=== PATIENT | female | born 1955 | race Caucasian/White ===

== ENCOUNTER 2017-09-20 09:05 | Outpatient (CLI) | payer OTHER | END 2017-09-20 09:11 | disposition home or self-care (01) | LOC: RAD 09:05 | DX: M25.561 Pain in right knee (principal) ==

== ENCOUNTER → 2017-09-20 | Outpatient (CLI) | payer OTHER ==
[~2017-09-20] MED LIST: ELOCON45 G1 TP; GILTUSS TR TAB1 EACH PO; LIPITOR40 MG PO; SYNTHROID50 MCG; SYNTHROID50 MCG PO; SYNTROID PO; ZYRTEC10 MG PO
== END | disposition home or self-care (01) ==
LOC: PPHC 08:07
DX: M25.561 Pain in right knee (principal); Z00.8 Encounter for other general examination; Z76.0 Encounter for issue of repeat prescription; Z00.00 Encounter for general adult medical examination without abnormal findings

== ENCOUNTER → 2017-11-11 | Outpatient (CLI) | payer OTHER | END | disposition home or self-care (01) | LOC: PPHC 11:33 | DX: Z01.89 Encounter for other specified special examinations (principal) ==

== ENCOUNTER 2017-11-22 09:55 | Outpatient (CLI) | payer OTHER | END 2017-11-22 09:58 | disposition home or self-care (01) | LOC: SONOGRAMA 09:55 | DX: E04.1 Nontoxic single thyroid nodule (principal) ==

== ENCOUNTER 2018-02-25 07:10 | Outpatient (CLI) | payer OTHER | END 2018-02-25 07:16 | disposition home or self-care (01) | LOC: LAB 07:10 | DX: E03.8 Other specified hypothyroidism (principal) ==

== ENCOUNTER 2018-06-17 07:09 | Outpatient (CLI) | payer OTHER | END 2018-06-17 07:17 | disposition home or self-care (01) | LOC: LAB 07:09 | DX: E03.8 Other specified hypothyroidism (principal) ==

== ENCOUNTER 2018-07-19 11:11 | Outpatient (CLI) | payer OTHER | END 2018-07-19 11:23 | disposition home or self-care (01) | LOC: RAD 11:11 | DX: M54.2 Cervicalgia (principal); M25.511 Pain in right shoulder; M25.512 Pain in left shoulder ==

== ENCOUNTER 2018-07-27 09:17 | Outpatient (CLI) | payer OTHER | END 2018-07-27 10:16 | disposition home or self-care (01) | LOC: MAMO-SONO 09:17 | DX: N60.12 Diffuse cystic mastopathy of left breast (principal); N64.4 Mastodynia; N76.0 Acute vaginitis; Z12.31 Encounter for screening mammogram for malignant neoplasm of breast ==

== ENCOUNTER 2018-08-14 10:24 | Outpatient (CLI) | payer OTHER ==
[~2018-08-14 10:24] MED LIST changes: +IBUPROFEN800 MG PO; +TIZANIDINE HCL4 MG PO
== END 2018-08-14 10:30 | disposition home or self-care (01) ==
LOC: LAB 10:24
DX: Z12.11 Encounter for screening for malignant neoplasm of colon (principal); K57.30 Diverticulosis of large intestine without perforation or abscess without bleeding; Z00.00 Encounter for general adult medical examination without abnormal findings

== ENCOUNTER 2018-08-24 09:42 | Outpatient (CLI) | payer OTHER | END 2018-08-24 10:07 | disposition home or self-care (01) | LOC: LAB 09:42 | DX: M26.629 Arthralgia of temporomandibular joint, unspecified side (principal) ==

== ENCOUNTER 2018-09-30 07:25 | Outpatient (CLI) | payer OTHER | END 2018-09-30 13:04 | disposition home or self-care (01) | LOC: LAB 07:25 | DX: E03.8 Other specified hypothyroidism (principal) ==

== ENCOUNTER 2019-01-19 06:24 | Outpatient (CLI) | payer OTHER | END 2019-01-19 06:55 | disposition home or self-care (01) | LOC: LAB 06:24 | DX: E03.8 Other specified hypothyroidism (principal); E11.65 Type 2 diabetes mellitus with hyperglycemia; E78.00 Pure hypercholesterolemia, unspecified ==

== ENCOUNTER 2019-01-19 07:19 | Outpatient (CLI) | payer OTHER | END 2019-01-19 08:52 | disposition home or self-care (01) | LOC: SONOGRAMA 07:19 → MAMO-SONO 10:45 | DX: E04.8 Other specified nontoxic goiter (principal) ==

== ENCOUNTER → 2019-03-10 07:32 | Outpatient (CLI) | payer OTHER | END | disposition home or self-care (01) | LOC: LAB 07:32 | DX: M06.4 Inflammatory polyarthropathy (principal); D64.89 Other specified anemias; E11.9 Type 2 diabetes mellitus without complications; E03.8 Other specified hypothyroidism; I10 Essential (primary) hypertension; E55.9 Vitamin D deficiency, unspecified ==

== ENCOUNTER 2019-03-10 08:33 | Outpatient (CLI) | payer OTHER | END 2019-03-10 08:37 | disposition home or self-care (01) | LOC: RAD 08:33 | DX: M79.604 Pain in right leg (principal); M25.551 Pain in right hip; M25.561 Pain in right knee ==

== ENCOUNTER → 2019-04-21 07:25 | Outpatient (CLI) | payer OTHER | END | disposition home or self-care (01) | LOC: LAB 07:25 | DX: E03.8 Other specified hypothyroidism (principal) ==

== ENCOUNTER → 2019-08-21 06:40 | Outpatient (CLI) | payer OTHER | END | disposition home or self-care (01) | LOC: LAB 06:40 | DX: E03.8 Other specified hypothyroidism (principal) ==

== ENCOUNTER 2020-01-01 06:35 | Outpatient (CLI) | payer OTHER | END 2020-01-01 15:00 | disposition home or self-care (01) | LOC: LAB 06:35 | PROVIDERS: ATTEND Internal Medicine Endocrinology, Diabetes & Metabolism | DX: E04.8 Other specified nontoxic goiter (principal) ==

== ENCOUNTER 2020-01-01 07:16 | Outpatient (CLI) | payer OTHER | END 2020-01-01 07:18 | disposition home or self-care (01) | LOC: SONOGRAMA 07:16 → MAMO-SONO 08:15 | PROVIDERS: ATTEND Internal Medicine Endocrinology, Diabetes & Metabolism | DX: E04.8 Other specified nontoxic goiter (principal) ==

== ENCOUNTER → 2020-03-05 15:33 | Outpatient (CLI) | payer OTHER | END | disposition home or self-care (01) | LOC: CERTIFICAD 15:33 | PROVIDERS: ATTEND Family Medicine | DX: Z11.1 Encounter for screening for respiratory tuberculosis (principal) ==

== ENCOUNTER → 2020-04-01 16:36 | Outpatient (CLI) | payer OTHER | END | disposition home or self-care (01) | LOC: PPH VACUNA 16:36 | DX: Z23 Encounter for immunization (principal) ==

== ENCOUNTER 2020-05-24 07:16 | Outpatient (CLI) | payer OTHER | END 2020-05-24 07:21 | disposition home or self-care (01) | LOC: LAB 07:16 | PROVIDERS: ATTEND Internal Medicine Endocrinology, Diabetes & Metabolism | DX: E03.8 Other specified hypothyroidism (principal) ==

== ENCOUNTER 2020-07-29 09:04 | Outpatient (CLI) | payer OTHER | END 2020-07-29 09:11 | disposition home or self-care (01) | LOC: RAD 09:04 | PROVIDERS: ATTEND Internal Medicine Cardiovascular Disease | DX: N64.59 Other signs and symptoms in breast (principal); I10 Essential (primary) hypertension ==

== ENCOUNTER 2020-07-29 10:09 | Outpatient (CLI) | payer OTHER | END 2020-07-29 10:24 | disposition home or self-care (01) | LOC: NUCLEAR 10:09 | PROVIDERS: ATTEND Internal Medicine Cardiovascular Disease | DX: G45.8 Other transient cerebral ischemic attacks and related syndromes (principal); E55.9 Vitamin D deficiency, unspecified; M81.0 Age-related osteoporosis without current pathological fracture; R00.2 Palpitations ==

== ENCOUNTER → 2020-08-02 07:25 | Outpatient (CLI) | payer OTHER | END | disposition home or self-care (01) | LOC: LAB 07:25 | PROVIDERS: ATTEND Internal Medicine Cardiovascular Disease | DX: I10 Essential (primary) hypertension (principal); E11.9 Type 2 diabetes mellitus without complications; E03.8 Other specified hypothyroidism; E78.2 Mixed hyperlipidemia ==

== ENCOUNTER 2020-12-06 07:37 | Outpatient (CLI) | payer OTHER | END 2020-12-06 07:41 | disposition home or self-care (01) | LOC: LAB 07:37 | PROVIDERS: ATTEND Internal Medicine Cardiovascular Disease | DX: I11.9 Hypertensive heart disease without heart failure (principal); J10.89 Influenza due to other identified influenza virus with other manifestations; E03.8 Other specified hypothyroidism; E78.2 Mixed hyperlipidemia; Z12.11 Encounter for screening for malignant neoplasm of colon; E55.9 Vitamin D deficiency, unspecified ==

== ENCOUNTER 2021-02-25 08:26 | Outpatient (CLI) | payer OTHER | END 2021-02-25 15:00 | disposition home or self-care (01) | LOC: LAB 08:26 | PROVIDERS: ATTEND Emergency Medicine Pediatric Emergency Medicine | DX: Z03.818 Encounter for observation for suspected exposure to other biological agents ruled out (principal) ==

== ENCOUNTER 2021-04-13 08:00 | Outpatient (CLI) | payer OTHER | END 2021-04-13 08:30 | disposition home or self-care (01) | LOC: PPH VACUNA 08:00 | PROVIDERS: ATTEND Emergency Medicine Pediatric Emergency Medicine | DX: Z23 Encounter for immunization (principal) ==

== ENCOUNTER → 2021-04-25 07:11 | Outpatient (CLI) | payer OTHER | END | disposition home or self-care (01) | LOC: LAB 07:11 | PROVIDERS: ATTEND Internal Medicine Cardiovascular Disease | DX: I10 Essential (primary) hypertension (principal); E11.9 Type 2 diabetes mellitus without complications; E03.8 Other specified hypothyroidism; E78.2 Mixed hyperlipidemia ==

== ENCOUNTER 2021-08-15 07:05 | Outpatient (CLI) | payer OTHER | END 2021-08-15 07:08 | disposition home or self-care (01) | LOC: LAB 07:05 | PROVIDERS: ATTEND Internal Medicine Cardiovascular Disease | DX: I10 Essential (primary) hypertension (principal); E11.9 Type 2 diabetes mellitus without complications; E03.8 Other specified hypothyroidism; E78.2 Mixed hyperlipidemia; E55.9 Vitamin D deficiency, unspecified; E78.00 Pure hypercholesterolemia, unspecified ==

== ENCOUNTER 2021-11-02 08:00 | Outpatient (CLI) | payer OTHER | END 2021-11-02 08:30 | disposition home or self-care (01) | LOC: PPH VACUNA 08:00 | PROVIDERS: ATTEND Emergency Medicine Pediatric Emergency Medicine | DX: Z23 Encounter for immunization (principal) ==

== ENCOUNTER 2021-12-19 07:19 | Outpatient (CLI) | payer OTHER | END 2021-12-19 07:22 | disposition home or self-care (01) | LOC: LAB 07:19 | PROVIDERS: ATTEND Internal Medicine Cardiovascular Disease | DX: I10 Essential (primary) hypertension (principal); E11.9 Type 2 diabetes mellitus without complications; E03.9 Hypothyroidism, unspecified; E78.2 Mixed hyperlipidemia; E55.9 Vitamin D deficiency, unspecified ==

== ENCOUNTER 2022-02-23 06:18 | Outpatient (CLI) | payer OTHER | END 2022-02-23 06:19 | disposition home or self-care (01) | LOC: LAB 06:18 | PROVIDERS: ATTEND Internal Medicine Endocrinology, Diabetes & Metabolism | DX: E03.8 Other specified hypothyroidism (principal); E78.00 Pure hypercholesterolemia, unspecified; E11.65 Type 2 diabetes mellitus with hyperglycemia ==

== ENCOUNTER 2022-02-23 07:23 | Outpatient (CLI) | payer OTHER | END 2022-02-23 07:26 | disposition home or self-care (01) | LOC: SONOGRAMA 07:23 | PROVIDERS: ATTEND Internal Medicine Endocrinology, Diabetes & Metabolism | DX: E04.8 Other specified nontoxic goiter (principal) ==

== ENCOUNTER 2022-04-07 08:00 | Outpatient (CLI) | payer OTHER | END 2022-04-07 08:05 | disposition home or self-care (01) | LOC: PPH VACUNA 08:00 | PROVIDERS: ATTEND Emergency Medicine Pediatric Emergency Medicine | DX: Z23 Encounter for immunization (principal) ==

== ENCOUNTER 2022-05-07 10:55 | Outpatient (CLI) | payer OTHER | END 2022-05-07 11:05 | disposition home or self-care (01) | LOC: PPH VACUNA 10:55 | PROVIDERS: ATTEND Emergency Medicine Pediatric Emergency Medicine | DX: Z23 Encounter for immunization (principal) ==

== ENCOUNTER 2022-08-10 09:14 | Outpatient (CLI) | payer OTHER | END 2022-08-10 09:24 | disposition home or self-care (01) | LOC: MAMO-SONO 09:14 | PROVIDERS: ATTEND Internal Medicine Cardiovascular Disease | DX: N63.11 Unspecified lump in the right breast, upper outer quadrant (principal) ==

== ENCOUNTER 2022-08-21 07:09 | Outpatient (CLI) | payer OTHER | END 2022-08-21 07:16 | disposition home or self-care (01) | LOC: LAB 07:09 | DX: E11.65 Type 2 diabetes mellitus with hyperglycemia (principal); E78.00 Pure hypercholesterolemia, unspecified; E03.8 Other specified hypothyroidism ==

== ENCOUNTER 2022-12-07 06:40 | Outpatient (CLI) | payer OTHER | END 2022-12-07 06:41 | disposition home or self-care (01) | LOC: LAB 06:40 | PROVIDERS: ATTEND Internal Medicine Cardiovascular Disease | DX: E03.9 Hypothyroidism, unspecified (principal); E11.9 Type 2 diabetes mellitus without complications; I10 Essential (primary) hypertension; E78.2 Mixed hyperlipidemia ==

== ENCOUNTER → 2023-02-15 06:28 | Outpatient (CLI) | payer OTHER | END | disposition home or self-care (01) | LOC: LAB 06:28 | PROVIDERS: ATTEND Internal Medicine Endocrinology, Diabetes & Metabolism | DX: E03.8 Other specified hypothyroidism (principal) ==

== ENCOUNTER 2023-02-15 07:43 | Outpatient (CLI) | payer OTHER | END 2023-02-15 07:44 | disposition home or self-care (01) | LOC: SONOGRAMA 07:43 | PROVIDERS: ATTEND Internal Medicine Endocrinology, Diabetes & Metabolism | DX: E04.8 Other specified nontoxic goiter (principal) ==

== ENCOUNTER 2023-03-17 | Outpatient (CLI) | payer OTHER | END 2023-03-17 00:15 | disposition home or self-care (01) | LOC: PPH VACUNA | PROVIDERS: ATTEND Emergency Medicine Pediatric Emergency Medicine | DX: Z23 Encounter for immunization (principal) | CPT/HCPCS: 90686; G0008 ==

== ENCOUNTER 2023-03-25 21:33 | Emergency (ER) | payer OTHER ==
[~2023-03-25] VITALS: Ht 165.1 cm; Wt 95.3 kg
[2023-03-25] MEDS ORDERED: NORVASC5 MG PO (21:46)
== END 2023-03-26 03:41 | disposition home or self-care (01) ==
LOC: ER 21:33
PROVIDERS: Emergency Medicine
DX: U07.1 COVID-19 (principal); I10 Essential (primary) hypertension

== ENCOUNTER 2023-05-28 07:16 | Outpatient (CLI) | payer OTHER ==
[~2023-05-28 07:16] MED LIST changes: +NORVASC5 MG PO
[2023-05-28 08:32] LABS: URINE APPEARANCE Clear; URINE BILIRRUBIN Negative (NEGATIVE); URINE BLOOD Negative; URINE COLOR Yellow; URINE GLUCOSE Negative (NEGATIVE); URINE LEUKOCYTE Trace; URINE NITRATE Negative; URINE PROTEIN Negative (NEGATIVE)
[2023-05-28 08:36] LABS: URINE BACTERIA 2373.4 uL (0.0-1933); URINE EPITHELIAL CELLS 21.3 uL (0.0-38.8); URINE RBC 5.8 uL (0.0-20.8); URINE WBC 18.8 uL (0.0-23.2)
[2023-05-28 08:59] LABS: HEMOGLOBIN 13.2 g/dL (12.0-15.00); MEAN CELL VOLUME 86.5 fL (80.00-100.00); MEAN CORPUSCULAR HEMOGLOBIN 29.4 pg (27.00-32.0); PLATELET COUNT 237 K/uL (150-450); RED CELL DISTRIBUTION WIDTH 15.8 % (11.5-14.5)
[2023-05-28 09:29] LABS: ALBUMIN 3.5 gm/dL (3.4-5.0); BILIRUBIN TOTAL 0.39 mg/dL (0.3-1.2); CALCIUM 8.9 mg/dL (8.5-10.1); CHOL HDL RATIO 3.2 (0-5.0); CREATININE SERUM 0.71 mg/dL (0.55-1.02); GFR 82.36; GLOBULINA 3.6 G/DL (2.4-3.5); POTASSIUM 4.29 mEq/L (3.5-5.1); T4 TOTAL 7.63 UG/DL (4.8-13.9); TOTAL PROTEIN 7.1 gm/dL (6.4-8.2); TSH 1.3 uIU/mL (0.358-3.74)
== END 2023-05-28 07:23 | disposition home or self-care (01) ==
LOC: LAB 07:16
PROVIDERS: ATTEND Internal Medicine Cardiovascular Disease
DX: E03.9 Hypothyroidism, unspecified (principal); E78.2 Mixed hyperlipidemia; E11.9 Type 2 diabetes mellitus without complications; I10 Essential (primary) hypertension

== ENCOUNTER 2024-01-16 10:42 | Outpatient (CLI) | payer OTHER | END 2024-01-16 10:53 | disposition home or self-care (01) | LOC: MRI 10:42 | PROVIDERS: ATTEND Orthopaedic Surgery Sports Medicine | DX: M25.551 Pain in right hip (principal); M25.561 Pain in right knee | CPT/HCPCS: 73721 ==

== ENCOUNTER → 2024-02-20 06:42 | Outpatient (CLI) | payer OTHER ==
[2024-02-20 07:45] LABS: HEMATOCRIT 39.7 % (36.0-45.00); HEMOGLOBIN 13.1 g/dL (12.0-15.00); MEAN CELL VOLUME 86.1 fL (80.00-100.00); MEAN CORPUSCULAR HEMOGLOBIN 28.4 pg (27.00-32.0); PLATELET COUNT 244 K/uL (150-450); RED CELL DISTRIBUTION WIDTH 15.9 % (11.5-14.5)
[2024-02-20 08:11] LABS: ALBUMIN 3.7 gm/dL (3.4-5.0); BILIRUBIN TOTAL 0.59 mg/dL (0.3-1.2); CALCIUM 9.1 mg/dL (8.5-10.1); CHOL HDL RATIO 2.2 (0-5.0); CREATININE SERUM 0.63 mg/dL (0.55-1.02); GFR 94.25; GLOBULINA 3.6 G/DL (2.4-3.5); POTASSIUM 4.2 mEq/L (3.5-5.1); T4 FREE 0.95 NG/ML (0.76-1.46); TOTAL PROTEIN 7.3 gm/dL (6.4-8.2); TSH 1.27 uIU/mL (0.358-3.74)
== END | disposition home or self-care (01) ==
LOC: LAB 06:42
PROVIDERS: ATTEND Internal Medicine Endocrinology, Diabetes & Metabolism
DX: E11.65 Type 2 diabetes mellitus with hyperglycemia (principal); E78.00 Pure hypercholesterolemia, unspecified; E03.8 Other specified hypothyroidism

== ENCOUNTER 2024-02-20 07:02 | Outpatient (CLI) | payer OTHER | END 2024-02-20 07:06 | disposition home or self-care (01) | LOC: SONOGRAMA 07:02 | PROVIDERS: ATTEND Internal Medicine Endocrinology, Diabetes & Metabolism | DX: E04.8 Other specified nontoxic goiter (principal) ==

== ENCOUNTER 2024-07-02 08:09 | Day surgery (SDC) | payer OTHER ==
[2024-06-25 07:56] LABS: HEMATOCRIT 40.4 % (36.0-45.00); HEMOGLOBIN 13.7 g/dL (12.0-15.00); MEAN CELL VOLUME 86.5 fL (80.00-100.00); MEAN CORPUSCULAR HEMOGLOBIN 29.3 pg (27.00-32.0); MEAN CORPUSCULAR HGB CONC 33.9 g/dl (32.0-36.0); PLATELET COUNT 265 K/uL (150-450); RED BLOOD COUNT 4.68 M/uL (4.00-6.00); RED CELL DISTRIBUTION WIDTH 15.4 % (11.5-14.5)
[2024-06-25 08:21] VITALS: BP 124/84
[2024-06-25 08:33] LABS: INR 0.99; PARTIAL THROMBOPLASTIN TIME 27.6 SECONDS (22.0-34.0); PROTHROMBIN TIME 10.8 SECONDS (9.0-11.5)
[2024-06-25 08:35] LABS: ALBUMIN 3.6 gm/dL (3.4-5.0); BILIRUBIN TOTAL 0.58 mg/dL (0.3-1.2); CALCIUM 8.9 mg/dL (8.5-10.1); CREATININE SERUM 0.71 mg/dL (0.55-1.02); GFR 82.11; GLOBULINA 3.7 G/DL (2.4-3.5); POTASSIUM 4.16 mEq/L (3.5-5.1); TOTAL PROTEIN 7.3 gm/dL (6.4-8.2)
[2024-06-25 08:54] LABS: URINE APPEARANCE Clear; URINE BILIRRUBIN Negative (NEGATIVE); URINE BLOOD Moderate; URINE COLOR Yellow; URINE GLUCOSE Negative (NEGATIVE); URINE KETONE Negative (NEGATIVE); URINE LEUKOCYTE Negative; URINE NITRATE Negative; URINE PROTEIN Negative (NEGATIVE); URINE UROBILINOGEN 0.2 E.U./dl
[2024-06-25 08:57] LABS: URINE BACTERIA 3778.3 uL (0.0-1933); URINE EPITHELIAL CELLS 18.9 uL (0.0-38.8); URINE RBC 87.7 uL (0.0-20.8); URINE WBC 14.8 uL (0.0-23.2)
[2024-06-25 09:02] LABS: URINE CAST 0.44 uL (0.0-1.40)
[~2024-07-02] VITALS: Ht 160 cm; Wt 96.2 kg
[~2024-07-02 08:09] MED LIST changes: +ZOCOR20 MG
[2024-07-02] MEDS ORDERED: CEFAZOLIN SODIUM 1,000 MG VIAL IV ONE ×2 (12:30→13:15)
[2024-07-02] MEDS ORDERED: METHYLPREDNISOLONE ACETATE 80 MG/ML VIAL IM ONE (12:30)
[2024-07-02] MEDS ORDERED: EPINEPHRINE HCL/PF 1 MG/ML AMPUL IR ONE (12:30)
[2024-07-02] MEDS ORDERED: DUI500 PO (13:08)
[2024-07-02] MEDS ORDERED: TRAM1TAB98 PO (13:09)
[2024-07-02] MEDS ORDERED: MEPERIDINE HCL/PF 25 MG/ML VIAL IM PRN (13:15)
[2024-07-02] MEDS ORDERED: PROMETHAZINE HCL 25 MG/ML AMPUL IM PRN (13:15)
[2024-07-02] MEDS ORDERED: CEFADROXIL 500 MG CAPSULE PO SCH (21:00)
== END 2024-07-02 16:50 | disposition home or self-care (01) ==
LOC: CIR.AMB 08:09
PROVIDERS: ATTEND Orthopaedic Surgery Sports Medicine
DX: S83.271A Complex tear of lateral meniscus, current injury, right knee, initial encounter (principal); M22.41 Chondromalacia patellae, right knee; M23.51 Chronic instability of knee, right knee; M17.11 Unilateral primary osteoarthritis, right knee; M67.51 Plica syndrome, right knee; I10 Essential (primary) hypertension; E03.8 Other specified hypothyroidism; E78.00 Pure hypercholesterolemia, unspecified

== ENCOUNTER 2024-07-23 06:59 | Emergency (ER) | payer OTHER ==
[~2024-07-23] VITALS: Ht 165.1 cm; Wt 96.6 kg
[~2024-07-23 06:59] MED LIST changes: +DUI500 PO; +TRAM1TAB98 PO
[2024-07-23] MEDS ORDERED: ROSUVASTATIN CAL5 MG PO (07:10)
[2024-07-23 07:11] VITALS: BP 123/78; O2SAT 97
[2024-07-23 09:00] LABS: URINE APPEARANCE Clear; URINE BILIRRUBIN Negative (NEGATIVE); URINE BLOOD Moderate; URINE COLOR Yellow; URINE GLUCOSE Negative (NEGATIVE); URINE KETONE Negative (NEGATIVE); URINE LEUKOCYTE Trace; URINE NITRATE Negative; URINE PROTEIN Negative (NEGATIVE); URINE UROBILINOGEN 0.2 E.U./dl
[2024-07-23 09:00] LABS: HEMATOCRIT 41.2 % (36.0-45.00); HEMOGLOBIN 13.8 g/dL (12.0-15.00); MEAN CELL VOLUME 86.6 fL (80.00-100.00); MEAN CORPUSCULAR HEMOGLOBIN 29.1 pg (27.00-32.0); MEAN CORPUSCULAR HGB CONC 33.6 g/dl (32.0-36.0); PLATELET COUNT 242 K/uL (150-450); RED BLOOD COUNT 4.76 M/uL (4.00-6.00); RED CELL DISTRIBUTION WIDTH 15.8 % (11.5-14.5)
[2024-07-23 09:03] LABS: URINE BACTERIA 116.2 uL (0.0-1933); URINE EPITHELIAL CELLS 18.5 uL (0.0-38.8); URINE RBC 155.2 uL (0.0-20.8); URINE WBC 24.5 uL (0.0-23.2)
[2024-07-23 09:07] LABS: URINE CAST 1.03 uL (0.0-1.40)
[2024-07-23 09:21] LABS: CALCIUM 9.5 mg/dL (8.5-10.1); CREATININE SERUM 0.68 mg/dL (0.55-1.02); GFR 86.3; POTASSIUM 4.21 mEq/L (3.5-5.1)
== END 2024-07-23 10:24 | disposition home or self-care (01) ==
LOC: ER 07:01
PROVIDERS: General Practice
DX: N20.1 Calculus of ureter (principal); R10.32 Left lower quadrant pain

== ENCOUNTER 2024-07-27 10:53 | Outpatient (CLI) | payer OTHER ==
[~2024-07-27 10:53] MED LIST changes: +ROSUVASTATIN CAL5 MG PO
[2024-07-27 11:36] LABS: PROTHROMBIN TIME 10.9 SECONDS (9.0-11.5)
== END 2024-07-27 11:06 | disposition home or self-care (01) ==
LOC: LAB 10:53
DX: N20.1 Calculus of ureter (principal); N13.5 Crossing vessel and stricture of ureter without hydronephrosis

== ENCOUNTER 2024-07-30 08:21 | Outpatient (CLI) | payer OTHER | END 2024-07-30 08:26 | disposition home or self-care (01) | LOC: EKG 08:21 | DX: I10 Essential (primary) hypertension (principal) ==

== ENCOUNTER 2024-11-26 09:44 | Outpatient (CLI) | payer OTHER | END 2024-11-26 09:54 | disposition home or self-care (01) | LOC: RAD 09:44 | PROVIDERS: ATTEND Urology | DX: N20.1 Calculus of ureter (principal); N13.5 Crossing vessel and stricture of ureter without hydronephrosis ==

== ENCOUNTER 2025-01-27 08:46 | Emergency (ER) | payer OTHER ==
[~2025-01-27] VITALS: Ht 165.1 cm; Wt 97.1 kg
[2025-01-27] MEDS ORDERED: KETOROLAC TROMETHAMINE 30 MG VIAL IM ONE (09:15)
== END 2025-01-27 11:09 | disposition home or self-care (01) ==
LOC: ER 08:48
DX: S93.492A Sprain of other ligament of left ankle, initial encounter (principal); S90.02XA Contusion of left ankle, initial encounter; W10.8XXA Fall (on) (from) other stairs and steps, initial encounter; Y93.89 Activity, other specified; Y92.89 Other specified places as the place of occurrence of the external cause; Y99.8 Other external cause status; I10 Essential (primary) hypertension; E03.8 Other specified hypothyroidism
CPT/HCPCS: 73610; 96372; 99283; J1885

== ENCOUNTER 2025-02-18 07:34 | Outpatient (CLI) | payer OTHER ==
[2025-02-18 08:20] LABS: BASO % 0.9 % (0.1-1.2); EOS # 0.14 (0.04-0.54); EOS % 2.6 % (0.7-7.0); LYMPH # 1.98 (1.18-3.74); LYMPH % 37.4 % (19.3-53.1); MEAN PLATELET VOLUME 9.40 fl (9.4-12.4); MONO # 0.54 (0.24-0.82); MONO % 10.2 % (4.7-12.5); NEUT # 2.58 (1.56-6.13); NEUT % 48.7 % (34.0-71.1); RED CELL DISTRIBUTION WIDTH 15.6 % (11.6-14.4)
[2025-02-18 09:35] LABS: URINE APPEARANCE Clear; URINE BILIRRUBIN Negative (NEGATIVE); URINE BLOOD Trace; URINE COLOR Yellow; URINE GLUCOSE Negative (NEGATIVE); URINE KETONE Negative (NEGATIVE); URINE LEUKOCYTE Small; URINE NITRATE Negative; URINE PROTEIN Negative (NEGATIVE); URINE UROBILINOGEN 0.2 E.U./dl
[2025-02-18 09:36] LABS: URINE BACTERIA 113.9 uL (0.0-1933); URINE EPITHELIAL CELLS 28.7 uL (0.0-38.8); URINE RBC 7.0 uL (0.0-20.8); URINE WBC 23.2 uL (0.0-23.2)
[2025-02-18 09:41] LABS: ALT/SGPT 40.0 U/L (12-78); AST/SGOT 26.0 U/L (15-37); BILIRUBIN TOTAL 0.72 mg/dL (0.3-1.2); BUN CREA RATIO 16.0 (7.0-25.0); CREATININE SERUM 0.75 mg/dL (0.55-1.02); GFR 76.84; GLOBULINA 3.6 G/DL (2.4-3.5); GLUCOSE FASTING 88.0 mg/dL (65-100); OSMOLALITY SERUM 284.0 MOSM/KG (275-295)
[2025-02-18 09:48] LABS: CHOL HDL RATIO 2.0 (0-5.0); HDL 72.0 mg/dl (40-60); LDL 57.0 mg/dl (0-130); T4 TOTAL 7.93 UG/DL (4.8-13.9); TSH 1.19 uIU/mL (0.358-3.74); VLDL 12.0 (0-39)
[2025-02-18 10:40] LABS: URINE CAST 0.00 uL (0.0-1.40)
== END 2025-02-18 07:40 | disposition home or self-care (01) ==
LOC: LAB 07:34
PROVIDERS: ATTEND Internal Medicine Cardiovascular Disease
DX: I10 Essential (primary) hypertension (principal); E03.9 Hypothyroidism, unspecified; E78.2 Mixed hyperlipidemia; E03.8 Other specified hypothyroidism; E11.65 Type 2 diabetes mellitus with hyperglycemia; E78.5 Hyperlipidemia, unspecified

== ENCOUNTER 2025-02-18 08:08 | Outpatient (CLI) | payer OTHER | END 2025-02-18 08:12 | disposition home or self-care (01) | LOC: SONOGRAMA 08:08 | PROVIDERS: ATTEND Internal Medicine Endocrinology, Diabetes & Metabolism | DX: E04.8 Other specified nontoxic goiter (principal) ==

== ENCOUNTER 2025-05-03 05:19 | Emergency (ER) | payer OTHER ==
[~2025-05-03] VITALS: Ht 165.1 cm; Wt 96.6 kg
[2025-05-03] MEDS ORDERED: GUAIFENESIN/DEXTROMETHORPHAN 100MG/10ML BLIST.PACK PO STA (07:50)
[2025-05-03] MEDS ORDERED: CETIRIZINE HCL 5 MG/5 ML ML PO STA (07:50)
[2025-05-03] MEDS ORDERED: GUAIFENESIN/DEXTROMETHORPHAN 100MG/10ML BLIST.PACK PO ONE (07:54)
[2025-05-03] MEDS ORDERED: CETIRIZINE HCL 5MG/5ML BLIST.PACK PO ONE (07:54)
[2025-05-03 08:17] LABS: BASO % 1.0 % (0.1-1.2); EOS # 0.18 (0.04-0.54); EOS % 2.6 % (0.7-7.0); LYMPH # 2.06 (1.18-3.74); LYMPH % 30.0 % (19.3-53.1); MEAN PLATELET VOLUME 9.60 fl (9.4-12.4); MONO # 0.63 (0.24-0.82); MONO % 9.2 % (4.7-12.5); NEUT # 3.89 (1.56-6.13); NEUT % 56.8 % (34.0-71.1); RED CELL DISTRIBUTION WIDTH 15.5 % (11.6-14.4)
[2025-05-03 08:51] LABS: COVID-19 AG NEGATIVE (NEGATIVE)
[2025-05-03] MEDS ORDERED: SINGULAIR10 MG PO (09:47)
[2025-05-03] MEDS ORDERED: DEXAMETHASONE4 MG PO (09:47)
[2025-05-03] MEDS ORDERED: BENZONATATE200 M1 PO (09:47)
[2025-05-03] MEDS ORDERED: MUCINEX DM ER1 EACH PO (09:47)
== END 2025-05-03 10:38 | disposition home or self-care (01) ==
LOC: ER 05:19
PROVIDERS: General Practice
DX: J06.9 Acute upper respiratory infection, unspecified (principal); J00 Acute nasopharyngitis [common cold]; Z20.822 Contact with and (suspected) exposure to COVID-19

== ENCOUNTER → 2025-07-12 | Outpatient (CLI) | payer OTHER ==
[~2025-07-12] MED LIST changes: +BENZONATATE200 M1 PO; +DEXAMETHASONE4 MG PO; +MUCINEX DM ER1 EACH PO; +SINGULAIR10 MG PO
== END | disposition home or self-care (01) ==
LOC: RAD 11:51
DX: M54.2 Cervicalgia (principal); M25.512 Pain in left shoulder; E07.89 Other specified disorders of thyroid; S10.93XA Contusion of unspecified part of neck, initial encounter; S20.219A Contusion of unspecified front wall of thorax, initial encounter